=== PATIENT | male | born 1940 | race Caucasian/White ===

== ENCOUNTER 2024-04-25 15:35 | Emergency (ER) | payer MEDICARE ==
[~2024-04-25] VITALS: Ht 165.1 cm; Wt 72.1 kg
[~2024-04-25 15:35] MED LIST: AMOXICILLIN500 MG PO; ASPIRIN ADULT L81 MG PO; SIMVASTATIN10 MG PO; TAM75CAP PO
[2024-04-25] MEDS ORDERED: levoFLOXacin 500 MG TAB PO ONE (22:00)
[2024-04-25] MEDS ORDERED: DEXAMETHASONE 2 MG/TAB TAB PO ONE (22:00)
[2024-04-25] MEDS ORDERED: BENZONATATE 200 MG/CAP PO ONE (22:00)
[2024-04-25] MEDS ORDERED: DECADRON4 MG PO ×2 (22:02→22:41)
[2024-04-25] MEDS ORDERED: LEVOFLOXACIN750 MG PO ×2 (22:02→22:41)
[2024-04-25] MEDS ORDERED: BENZONATATE200 MG PO ×2 (22:02→22:41)
[2024-04-25 22:40] VITALS: BP 140/71
== END 2024-04-25 22:40 | disposition home or self-care (01) ==
LOC: ED 15:35
DX: J18.9 Pneumonia, unspecified organism (principal); Z90.49 Acquired absence of other specified parts of digestive tract; Z72.0 Tobacco use; Z20.822 Contact with and (suspected) exposure to COVID-19